=== PATIENT | female | born 1960 | race Caucasian/White ===

== ENCOUNTER 2017-07-02 14:09 | Inpatient (IN) | payer SELFPAY ==
[~2017-07-02] VITALS: Ht 172.7 cm; Wt 124.2 kg
[2017-07-02 15:09] LABS: Basophils # (auto) 0.1 uL; Basophils % (auto) 0.9 % (0.0-2.0); Eosinophils # (auto) 0.1 uL; Eosinophils % (auto) 2.1 % (0.0-7.0); Hematocrit 41.8 % (36.0-46.0); Hemoglobin 14.2 g/dL (12.2-16.2); Lymphocytes # (auto) 2.6 uL; Mean Corpuscular Hemoglobin 30.6 pg (28.0-32.0); Mean Corpuscular Hgb Conc. 34.1 g/dL (32.0-36.0); Mean Corpuscular Volume 89.8 fL (80.0-100.0); Monocytes # (auto) 0.5 uL; Monocytes % (auto) 8.5 % (0.0-12.0); Neutrophils # (auto) 2.4 uL; Neutrophils % (auto) 42.5 % (37.0-80.0); Nucleated Red Blood Cells % 0.2 %; Platelet Count (auto) 219 10^3/uL (140-450); Red Blood Cells 4.66 10^6/uL (4.0-5.20); Red Cell Distribution Width 13.5 % (11.8-14.3); White Blood Cell 5.8 10^3/uL (4.4-10.8)
[2017-07-02 15:21] LABS: Urine Bacteria FEW /hpf (None Seen); Urine Blood Negative /uL (Negative); Urine Specific Gravity 1.003 (1.001-1.035); Urine WBC 1 /hpf (0 - 5)
[2017-07-02 15:25] LABS: Albumin 3.9 g/dL (3.4-5.0); BUN/Creatinine Ratio 11.7; Bilirubin, Total 0.6 mg/dL (0.2-1.0); Calcium 8.6 mg/dL (8.5-10.1); Magnesium 2.5 mg/dL (1.6-2.6); Potassium 3.6 mmol/L (3.5-5.1); Total Protein 7.5 g/dL (6.4-8.2)
[2017-07-02] MEDS ORDERED: ASPirin 81 mg TAB PO ONE (18:15)
[2017-07-02] MEDS ORDERED: MORPHINE SULF INJ 2 MG/ML SYRINGE 1ML IV PRN (22:15)
[2017-07-02] MEDS ORDERED: ACETAMINOPHEN 325 MG TAB PO PRN (22:15)
[2017-07-02] MEDS ORDERED: HYDROcodone-ACET 5/325MG TAB PO PRN (22:15)
[2017-07-02] MEDS ORDERED: ONDANSETRON HCL 4 MG/2 ML VIAL IV PRN (22:15)
[2017-07-02] MEDS ORDERED: NITROGLYCERIN 0.4 MG SL TAB SL PRN (22:15)
[2017-07-02] MEDS ORDERED: TEMAZEPAM 15 MG CAP PO PRN (22:15)
[2017-07-03] MEDS: SODIUM CHLORIDE 0.9% 1,000 ML IV SCH ×2 (04:09→17:01)
[2017-07-03 07:28] LABS: Basophils # (auto) 0 uL; Basophils % (auto) 0.8 % (0.0-2.0); Eosinophils # (auto) 0.1 uL; Eosinophils % (auto) 2.1 % (0.0-7.0); Hematocrit 38.7 % (36.0-46.0); Lymphocytes # (auto) 1.9 uL; Lymphocytes % (auto) 36.1 % (10.0-50.0); Mean Corpuscular Hemoglobin 30.2 pg (28.0-32.0); Mean Corpuscular Hgb Conc. 33.5 g/dL (32.0-36.0); Monocytes # (auto) 0.5 uL; Monocytes % (auto) 9.3 % (0.0-12.0); Neutrophils # (auto) 2.8 uL; Neutrophils % (auto) 51.7 % (37.0-80.0); Platelet Count (auto) 179 10^3/uL (140-450); Red Cell Distribution Width 13.6 % (11.8-14.3); White Blood Cell 5.3 10^3/uL (4.4-10.8)
[2017-07-03 07:32] LABS: Albumin 3.5 g/dL (3.4-5.0); BUN/Creatinine Ratio 16.9; Calcium 8.4 mg/dL (8.5-10.1); Potassium 3.6 mmol/L (3.5-5.1)
[2017-07-03 07:34] LABS: Bilirubin, Total 0.8 mg/dL (0.2-1.0); Total Protein 6.7 g/dL (6.4-8.2)
[2017-07-03 09:00] VITALS: BP 122/82
[2017-07-03] MEDS: FAMOTIDINE 20 MG TAB PO SCH ×2 (10:24→21:24)
[2017-07-03] MEDS: ENOXAPARIN SOD 40 MG/0.4 ML SYRINGE SC SCH (10:25)
[2017-07-03] MEDS: ASPirin 81 mg TAB PO SCH (10:25)
[2017-07-03 13:00] VITALS: BP 129/73
[2017-07-03 15:52] LABS: Cholesterol 151 mg/dL (< 200); HDL Cholesterol 33 mg/dL (40-59); LDL Cholesterol 104 mg/dL (< 100); Triglycerides 140 mg/dL (< 150)
[2017-07-03] MEDS ORDERED: IBUP200T76 PO (15:57)
[2017-07-03 17:04] VITALS: BP 123/70
[2017-07-03 22:00] VITALS: BP 111/62
[2017-07-04 04:53] VITALS: BP 100/62
[2017-07-04 08:40] VITALS: BP 134/69
[2017-07-04] MEDS: SODIUM CHLORIDE 0.9% 1,000 ML IV SCH (10:17)
[2017-07-04] MEDS: FAMOTIDINE 20 MG TAB PO SCH ×2 (10:18→22:08)
[2017-07-04] MEDS: ASPirin 81 mg TAB PO SCH (10:18)
[2017-07-04] MEDS: ENOXAPARIN SOD 40 MG/0.4 ML SYRINGE SC SCH (10:18)
[2017-07-04 12:54] VITALS: BP 106/62
[2017-07-04 16:39] VITALS: BP 114/74
[2017-07-04] MEDS ORDERED: LORazepam 2MG/ML-1ML VIAL IV PRN ×2 (19:45)
[2017-07-04 21:48] VITALS: BP 109/65
[2017-07-04] MEDS ORDERED: ATORVASTATIN 20 MG TAB PO SCH (22:00)
[2017-07-05] MEDS: SODIUM CHLORIDE 0.9% 1,000 ML IV SCH (00:12)
[2017-07-05 04:40] VITALS: BP 121/65
[2017-07-05] MEDS: FAMOTIDINE 20 MG TAB PO SCH (08:51)
[2017-07-05] MEDS: ENOXAPARIN SOD 40 MG/0.4 ML SYRINGE SC SCH (08:51)
[2017-07-05 09:00] VITALS: BP 103/60
[2017-07-05] MEDS ORDERED: ASPirin 81 mg TAB PO SCH (10:00)
[2017-07-05 13:00] VITALS: BP 113/67
[2017-07-05 13:26] VITALS: BP 129/75
[2017-07-05 17:00] VITALS: BP 134/86
== END 2017-07-05 19:35 | disposition home or self-care (01) | DRG 69 ==
LOC: ER 14:09 → TELE 14:10 → TELE-WESTW 07-03 07:56
PROVIDERS: ADMIT Nurse Practitioner; ATTEND Family Medicine
DX: G45.9 Transient cerebral ischemic attack, unspecified (principal); Z68.41 Body mass index [BMI] 40.0-44.9, adult; J98.11 Atelectasis; E66.9 Obesity, unspecified; E78.00 Pure hypercholesterolemia, unspecified; E78.5 Hyperlipidemia, unspecified; G47.10 Hypersomnia, unspecified; Z79.82 Long term (current) use of aspirin; Z79.899 Other long term (current) drug therapy; Z82.3 Family history of stroke; Z83.3 Family history of diabetes mellitus; Z90.710 Acquired absence of both cervix and uterus; Z90.49 Acquired absence of other specified parts of digestive tract
CPT/HCPCS: 36415; 70450; 70551; 71046; 80053; 80061; 81001; 83735; 84443; 85025; 93005; 93306; 93886; 94660; 96374; J2405